=== PATIENT | female | born 1995 | race African-American/Black ===

== ENCOUNTER 2016-07-19 15:51 | Emergency (ER) | payer MEDICAID ==
[~2016-07-19] VITALS: Ht 165.1 cm; Wt 75.0 kg
[2016-07-19] MEDS ORDERED: ACETAMINOPHEN 650MG/20.3ML UDC ONE (16:13)
[2016-07-19 21:02] VITALS: BP 126/81
[2016-07-19] MEDS ORDERED: PENICILLIN G BENZATHINE 1,200,000 UNITS/2ML SYR IM ONE (21:30)
== END 2016-07-19 22:46 | disposition home or self-care (01) ==
LOC: ER 20:46
DX: J02.9 Acute pharyngitis, unspecified (principal); F12.10 Cannabis abuse, uncomplicated
CPT/HCPCS: 96372; 99283; J0561

== ENCOUNTER 2018-02-17 02:57 | Inpatient (IN) | payer OTHER ==
[~2018-02-17] VITALS: Ht 170.2 cm; Wt 91.6 kg
[~2018-02-17 02:57] MED LIST: FERR325T6 MT; PREN1TAB78 MT
[2018-02-17] MEDS ORDERED: MISOPROSTOL 100MCG TABLET VG SCH (04:30)
[2018-02-17] MEDS ORDERED: BUTORPHANOL TARTRATE 2 MG/ML VIAL IV PRN (04:30)
[2018-02-17] MEDS ORDERED: METHYLERGONOVINE MALEATE 0.2 MG/ML IM PRN (04:30)
[2018-02-17] MEDS ORDERED: CARBOPROST TROMETHAMINE 250 MCG/ML AMPUL IM PRN (04:30)
[2018-02-17] MEDS ORDERED: LIDOCAINE HCL 1% 20ML VIAL (Pyxis) INJ INFIL SCH (04:30)
[2018-02-17] MEDS ORDERED: NALOXONE HCL 0.4 MG/ML 1ML VIAL IM PRN (04:30)
[2018-02-17] MEDS: LACTATED RINGERS 1,000 ML IV SCH ×3 (05:03→08:59)
[2018-02-17 06:09] LABS: INR 0.9; PARTIAL THROMBOPLASTIN TIME 27.2 sec (23.4-31.0); PROTHROMBIN TIME 9.2 sec (9.1-11.1)
[2018-02-17 06:30] LABS: HEMATOCRIT. 32.6 % (36.0-48.0); HEMOGLOBIN. 10.7 g/dL (12.0-16.0); LYMPHOCYTES % 20.4 % (20.0-50.0); MEAN CORPUSCULAR VOLUME 91.1 fL (81.0-99.0); MEAN PLATELET VOLUME 8.3 fl (7.4-10.4); NEUTROPHILS % 71.1 % (40.0-76.0); PLATELET 279 x1000/uL (130-400); RED BLOOD CELL COUNT 3.58 mill/uL (4.2-5.4); RED CELL DISTRIBUTION WIDTH 14.6 % (11.6-14.6)
[2018-02-17 06:31] LABS: BASOPHILS % 0.3 % (0.0-2.0); EOSINOPHILS % 0.5 % (0.0-5.0); MONOCYTES % 7.7 % (2.0-8.0)
[2018-02-17] MEDS ORDERED: BUPIVACAINE HCL/NS/PF EPIDURAL 100 ML EP ONE (08:25)
[2018-02-17] MEDS ORDERED: BUPIVACAINE HCL/PF 0.25% (2.5MG/ML) 10ML ONE (08:25)
[2018-02-17] MEDS ORDERED: FENTANYL CITRATE/PF 50MCG/ML 2ML VIAL ONE (08:26)
[2018-02-17] MEDS: DEXT 5%/LR + PITOCIN 20UNITS/L 1,000 ML IV SCH ×2 (09:41→12:45)
[2018-02-17 09:48] LABS: CLARITY URINE CLEAR (CLEAR); COLOR URINE YELLOW (YELLOW); KETONES URINE TRACE (NEGATIVE); LEUKOCYTE ESTERASE URINE TRACE (NEGATIVE); NITRITE URINE NEGATIVE (NEGATIVE); OCCULT BLOOD URINE NEGATIVE (NEGATIVE); PROTEIN URINE NEGATIVE (NEGATIVE); SPECIFIC GRAVITY URINE 1.027 (1.005-1.030); UROBILINOGEN URINE 0.2 E.U./dL (0.2-1.0)
[2018-02-17 10:34] LABS: *AMPHETAMINES SCREEN URINE NEGATIVE (NEGATIVE); *BARBITURATES SCREEN URINE NEGATIVE (NEGATIVE); *BENZODIAZEPINES SCREEN URINE NEGATIVE (NEGATIVE); *COCAINE SCREEN URINE NEGATIVE (NEGATIVE); CANNABINOID URINE SCREEN NEGATIVE (NEGATIVE); METHADONE URINE SCREEN NEGATIVE (NEGATIVE); OPIATES URINE SCREEN NEGATIVE (NEGATIVE); PHENCYCLIDINE URINE SCREEN NEGATIVE (NEGATIVE)
[2018-02-17] MEDS ORDERED: CEFAZOLIN SODIUM 1000MG/VIAL ONE (11:38)
[2018-02-17] MEDS ORDERED: MORPHINE SULFATE/PF 1MG/ML 10ML AMP ONE (11:38)
[2018-02-17] MEDS ORDERED: OXYTOCIN 10 UNITS/ML 1ML ONE ×2 (11:39→12:19)
[2018-02-17] MEDS ORDERED: PROPOFOL 200MG/20ML VIAL IV ONE (11:48)
[2018-02-17] MEDS ORDERED: KETAMINE HCL 50 MG/ML 10ML ONE (11:49)
[2018-02-17] MEDS ORDERED: KETOROLAC 60MG/2ML VIAL IM ONE (12:11)
[2018-02-17] MEDS ORDERED: METOCLOPRAMIDE HCL 10MG/2ML VIAL ONE (12:12)
[2018-02-17] MEDS ORDERED: ONDANSETRON HCL 4MG/2ML INJ ONE (12:12)
[2018-02-17 12:39] LABS: HEPATITIS B SURFACE ANTIGEN NEGATIVE
[2018-02-17] MEDS ORDERED: DEXT 5%/LR + PITOCIN 20UNITS/L 1,000 ML IV SCH (12:46)
[2018-02-17] MEDS ORDERED: RHO(D) IMMUNE GLOBULIN 300 MCG/SYR IM PRN (13:00)
[2018-02-17] MEDS ORDERED: HYDROMORPHONE HCL/PF 2MG/ML CPJ IV PRN (13:00)
[2018-02-17] MEDS ORDERED: HYDROCODONE/ACETAMINOPHEN 5/325MG TABLET PO PRN (13:00)
[2018-02-17] MEDS ORDERED: MEPERIDINE HCL/PF 25MG/ML CPJ IV PRN (13:00)
[2018-02-17] MEDS ORDERED: ONDANSETRON HCL 4MG/2ML INJ IV PRN (13:00)
[2018-02-17] MEDS ORDERED: LANOLIN OINT 0.25 GM TUBE TOP PRN (13:00)
[2018-02-17 15:00] VITALS: BP 115/73
[2018-02-17 15:30] VITALS: BP 130/82
[2018-02-17 20:00] VITALS: BP 115/74
[2018-02-17] MEDS: DOCUSATE SODIUM 100MG CAPSULE PO SCH (21:00)
[2018-02-17] MEDS: HYDROCODONE/ACETAMINOPHEN 5/325MG TABLET PO PRN (21:20)
[2018-02-17] MEDS ORDERED: KETOROLAC 60MG/2ML VIAL IM PRN (23:15)
[2018-02-17] MEDS: KETOROLAC 30MG/ML VIAL IM PRN (23:45)
[2018-02-18] VITALS: BP 114/72
[2018-02-18 05:43] VITALS: BP 117/72
[2018-02-18] MEDS: KETOROLAC 30MG/ML VIAL IM PRN ×2 (05:59→11:30)
[2018-02-18 07:14] LABS: BASOPHILS % 0.1 % (0.0-2.0); EOSINOPHILS % 0.6 % (0.0-5.0); HEMATOCRIT. 25.6 % (36.0-48.0); HEMOGLOBIN. 8.7 g/dL (12.0-16.0); LYMPHOCYTES % 17.8 % (20.0-50.0); MEAN CORPUSCULAR HEMOGLOBIN 30.7 pg (28.0-32.0); MEAN CORPUSCULAR VOLUME 90.5 fL (81.0-99.0); MEAN PLATELET VOLUME 7.4 fl (7.4-10.4); MONOCYTES % 6.3 % (2.0-8.0); NEUTROPHILS % 75.2 % (40.0-76.0); PLATELET 198 x1000/uL (130-400); RED BLOOD CELL COUNT 2.83 mill/uL (4.2-5.4); RED CELL DISTRIBUTION WIDTH 14.5 % (11.6-14.6)
[2018-02-18 08:20] VITALS: BP 138/91
[2018-02-18] MEDS: PRENATAL VIT/FE FUMARATE/FA TABLET PO SCH (10:10)
[2018-02-18] MEDS: HYDROCODONE/ACETAMINOPHEN 5/325MG TABLET PO PRN (14:19)
[2018-02-18 16:50] VITALS: BP 110/70
[2018-02-18] MEDS: DOCUSATE SODIUM 100MG CAPSULE PO SCH (20:19)
[2018-02-18] MEDS: IBUPROFEN 400MG TABLET PO PRN (20:19)
[2018-02-18 22:00] VITALS: BP 119/78
[2018-02-19] MEDS: IBUPROFEN 400MG TABLET PO PRN (03:57)
[2018-02-19 04:30] VITALS: BP 130/82
[2018-02-19 08:22] VITALS: BP 118/79
[2018-02-19] MEDS: PRENATAL VIT/FE FUMARATE/FA TABLET PO SCH (10:15)
[2018-02-19 16:00] VITALS: BP 111/66
[2018-02-19] MEDS: HYDROCODONE/ACETAMINOPHEN 5/325MG TABLET PO PRN (16:39)
[2018-02-19] MEDS ORDERED: BISACODYL 10MG SUPP PR PRN (19:30)
[2018-02-19 20:44] VITALS: BP 112/73
[2018-02-19] MEDS: DOCUSATE SODIUM 100MG CAPSULE PO SCH (21:16)
[2018-02-20] MEDS: IBUPROFEN 400MG TABLET PO PRN (03:36)
[2018-02-20 06:00] VITALS: BP 110/71
[2018-02-20 08:47] VITALS: BP 117/82
[2018-02-20] MEDS: PRENATAL VIT/FE FUMARATE/FA TABLET PO SCH (10:42)
== END 2018-02-20 12:05 | disposition home or self-care (01) | DRG 540 ==
LOC: L&D 02:57 → OBSVTOIN 15:30 → 7EST PP/OB 15:43
PROVIDERS: ADMIT Obstetrics & Gynecology; ATTEND Obstetrics & Gynecology
PROC: 10D00Z1 Extraction of Products of Conception, Low, Open Approach (ICD-10-PCS; principal; 2018-02-17 11:50)
DX: O69.81X0 Labor and delivery complicated by cord around neck, without compression, not applicable or unspecified (principal); D62 Acute posthemorrhagic anemia; O48.0 Post-term pregnancy; O99.02 Anemia complicating childbirth; Z37.0 Single live birth; O76 Abnormality in fetal heart rate and rhythm complicating labor and delivery; Z3A.41 41 weeks gestation of pregnancy
CPT/HCPCS: 36415; 76815; 80305; 86592; 86703; 86762; 86850; 86900; 87340; 88307; 99281; G0378; J0595; J0690; J1885; J2274; J2310; J2405; J2590; J2704; J2765; J3010; J3490; J7120; A4315